=== PATIENT | male | born 1975 | race Caucasian/White ===

== ENCOUNTER 2016-05-13 15:43 | Emergency (ER) | payer BC ==
[2016-05-13] MEDS ORDERED: NORMAL SALINE 10 ML SYRINGE FLUSH IVP PRN (16:14)
[2016-05-13] MEDS ORDERED: ONDANSETRON 4 MG/2 ML VIAL IVP ONE (16:14)
[2016-05-13] MEDS ORDERED: Sodium Chloride 0.9% 1,000 ML PRIMARY IV ONE (16:14)
[2016-05-13] MEDS ORDERED: CloNIDine Tab 0.1 MG TABLET PO ONE (16:14)
--- NOTE | 2016-05-13 16:16 | PDOC ---
Alcohol/Drug Abuse HPI - General Chief Complaint: Drug / Alcohol Use &/or Abuse Stated Complaint: DRUG WITHDRAWLS/ NEEDS MEDS Date Seen by Provider: 05/13/16 Time Seen by Provider: 16:15 Source: POSITIVE: Patient, Other (Brother) Exam Limitations: POSITIVE: No limitations - History of Present Illness Initial Comments: Patient is a 41 y/o male who presents for evaluation of drug abuse. Patient has a history of heavy narcotic abuse. He has been injecting opana and dilaudid. Patient has been using opiods for sometime now. Recently moved to [place] from [place] to be with his brother. Patient has been investigating outpatient treatment but can not get any help unti sunday. He is worried that he will continue to abuse drugs due to his withdrawal symptoms. patient described diffuse pain, shakiness, nausea and vomiting. No diarrhea at this time. Mild, nondescript diffuse abdominal discomfort. no exacerbating or relieving factors. - Patient Home Medications Home Medications: Home Medications Esomeprazole Magnesium [Nexium] 40 mg PO DAILY cap 08/16/15 Clonidine HCl 0.1 mg PO BID #12 tab 05/13/16 Gabapentin 800 mg PO TID 05/13/16 HYDROcodone/APAP 10/325 Tab [Castaner 10/325 Tab] 1 tab PO Q4H PRN 05/13/16 HYDROmorphone Tab [Dilaudid Tab] 24 mg PO BID 05/13/16 Loperamide HCl [Anti-Diarrhea] 2 mg PO Q6H PRN #12 tablet 05/13/16 Oxymorphone HCl [Opana ER] 90 mg PO DAILY 05/13/16 Oxymorphone HCl [Opana] 15 mg PO DAILY 05/13/16 Promethazine HCl 25 mg PO Q6H PRN #12 tab 05/13/16 - Patient Allergies Allergies/Adverse Reactions: Allergies Allergy/AdvReac Type Severity Reaction Status Date / Time morphine AdvReac NAUSEA Verified 05/13/16 15:56 Past Medical History - heen HEENT History: Denies History Cardiovascular History: Denies History Respiratory History: Denies History Gastrointestinal History: GERD Genitourinary History: Denies History Endocrine History: Denies History Musculoskeletal History: Back Pain Neurological History: Denies History Blood Disorders: Denies History Substance Use Type: Opiate Pain Medication Previous Surgical History: Yes Type / Date of Surgery: appendectomy Significant Family History: No pertinent family hx ROS - Limitations ROS Limitations: No Limitations Constitution: REPORTS: Denies Symptoms. DENIES: Chills, Fever Cardiovascular: REPORTS: Denies Cardiac Symptoms Respiratory: REPORTS: Denies Resp Symptoms Neurological: REPORTS: Other (tremor) Gastrointestinal: REPORTS: Nausea, Vomitting. DENIES: Diarrhea Endocrine: REPORTS: Fatigue Musculoskeletal: REPORTS: Other (Chronic back and neck pain) Genitourinary: REPORTS: Denies Symptoms Eyes: REPORTS: Denies Symptoms ENT: REPORTS: Denies Symptoms Skin: REPORTS: Denies Skin Symptoms Psychiatric: POSITIVE: Anxiety Alcohol/Drug Abuse PE - General Appearance General Appearance: POSITIVE: No Acute Distress - HEENT HEENT: POSITIVE: Head Inspection Nml, Eyes Inspection Nml, EOMI, Dry Mucous Membranes - Pupil Size Pupil Size: 4 mm: Bilateral - Neurological/Psychological Neurological: POSITIVE: Alert, Oriented X 3, Other (aggitated.) Cranial Nerves: POSITIVE: Normal As Tested Cerebellar: POSITIVE: Normal As Tested Peripheral Exam: POSITIVE: No Motor Deficits - Neck Neck: POSITIVE: Supple, Non Tender. NEGATIVE: Cervical Lymphadenopathy - Respiratory Respiratory: POSITIVE: No Respiratory Distress, Breath Sounds Normal - CVS CVS: POSITIVE: Tachycardia. NEGATIVE: Murmur - Abdomen Abdomen: Soft: (All Quadrants), Normal Bowel Sounds: (All Quadrants), Denies Tenderness: (All Quadrants), No Splenomegaly: (All Quadrants), No Hepatomegaly: (All Quadrants), No Guarding: (All Quadrants), No Rebound: (All Quadrants) - Skin Skin: POSITIVE: Other (Track nadine on left upper extremity.) Alcohol/Drug Abuse Progress - Patient's Progress MDM / ED Course: Patient is a 41 y/o male who presents to the ER for treatment of drug abuse. Vitals are notable for tachycardia and examination demonstrates overall well appearing male in NAD. Patient is primarily interested in obtaining suboxone for treatment of his narcotic addiction. He was given NS bolus here, zofran, and clonidine. Patient was evaluation by [employer] sales representative from [employer] and he decided to not pursue treatment at [facility] at this time. Subsequently I will try to control symptoms with medication on an outpatient basis and have patient follow up with his outpatient provider as planned on Sunday. Patient Care Time - Estimated PCT Patient Care Time (In Minutes): 30 Vital Signs - Recent Vital Signs Vital Signs: Vital Signs (Last 8 hours) Temp Pulse Pulse Resp BP BP Pulse Ox 05/13/16 15:43 97.2 F 123 H 123 H 15 143/99 143/99 98 - VS Reviewed Vital Signs Reviewed: Yes Discharge Clinical Impression: Opioid abuse Discharge Disposition: Discharged to Home Condition: Fair Prescriptions / Orders: Loperamide HCl [Anti-Diarrhea] 2 mg PO Q6H PRN #12 tablet PRN Reason: Diarrhea Clonidine HCl 0.1 mg PO BID #12 tab Promethazine HCl 25 mg PO Q6H PRN #12 tab PRN Reason: Vomiting Patient Instructions Given at Discharge: Narcotic Abuse (ED), Opioid Withdrawal (ED) Additional Instructions: Please use medications as prescribed to help with symptoms. Keep outpatient appointment as scheduled. Follow up with [facility] if needed further treatment. Return to ER for any changes. Follow Up With: NONE,NONE [Primary Care Provider] -
[2016-05-13 16:32] VITALS: RESP 15; TEMP 97.2
== END 2016-05-13 17:24 | disposition home or self-care (01) ==
LOC: ER 15:43
DX: F11.23 Opioid dependence with withdrawal (principal); R11.2 Nausea with vomiting, unspecified; R19.7 Diarrhea, unspecified
CPT/HCPCS: 90791; 96361; 96374; 99282; 99283; J2405; J7030

== ENCOUNTER 2018-08-01 09:35 | Inpatient (IN) ==
[2018-08-01] MEDS ORDERED: Sodium Chloride 0.9% 1,000 ML PRIMARY IV ONE ×3 (09:59→12:56)
[2018-08-01] MEDS ORDERED: ONDANSETRON 4 MG/2 ML VIAL IVP ONE (09:59)
[2018-08-01] MEDS ORDERED: KETOROLAC 15 MG/1 ML VIAL IVP ONE (09:59)
--- NOTE | 2018-08-01 10:03 | PDOC ---
Neuro Symptoms / Deficit HPI - General Chief Complaint: Neurological Complaints Stated Complaint: legs weak Date Seen by Provider: 08/01/18 Time Seen by Provider: 09:40 Source: POSITIVE: Patient Exam Limitations: POSITIVE: No limitations Nurse's Notes Reviewed & Considered: Yes - History of Present Illness Initial Comments: This is a well-developed, well-nourished, 43-year-old male, complaining of lower extremity pain and weakness. Patient has had a one-year history of gradually increasing weakness in his lower extremities with pain that he has difficulty describing. Over the course of the last week his weakness has gotten significantly worse with him being unable to stand on his tiptoes. Patient was diagnosed approximately a year ago with diabetes but has taken no action and takes no medications. He does not have a doctor. Patient denies headache, no sore throat, no chest pain or shortness of breath, no nausea vomiting or diarrhea, no hematuria dysuria, no rashes. Body Location Affected: REPORTS: Lower Extremity (L), Lower Extremity (R) Timing: REPORTS: Gradual, Getting Worse Duration: Other (Approximately one year but significantly worse in the last week.) Severity: Severe Quality: REPORTS: "Pain" Context: DENIES: Insect Bite, Tick Bite, Falling Injury, Head Injury, Other Character of Deficit(s): REPORTS: Right, Left, RLE, LLE, New Weakness, General(diffuse), Decreased Ability to Walk, Weak Associated Symptoms: REPORTS: Back Pain Usual Ability to Walk/Stand: REPORTS: Walks w/o Assistance Usual Cognition: REPORTS: Alert & Oriented x3 Similar Symptoms Previously: No Recently seen/treated/hospitalized: No Any Prior Injuries Related to Current Complaint?: No - Patient Home Medications Home Medications: Home Medications Acetaminophen [Tylenol] 1,000 mg PO BID PRN 12/31/17 Naproxen 500 mg PO BID #20 tablet. 12/31/17 Pantoprazole Sodium [Protonix] 40 mg PO DAILY 08/01/18 - Patient Allergies Allergies/Adverse Reactions: Allergies Allergy/AdvReac Type Severity Reaction Status Date / Time Sulfa (Sulfonamide Allergy Rash Verified 08/01/18 09:36 Antibiotics) morphine AdvReac Mild NAUSEA Verified 12/31/17 11:47 Past Medical History - heen HEENT History: Denies History Cardiovascular History: Hypertension Respiratory History: Denies History Gastrointestinal History: GERD Genitourinary History: Denies History Endocrine History: Type 2 Diabetes (diet) Musculoskeletal History: Back Pain Prosthesis or Implant: No Additional Musculoskeletal History: CHRONIC NECK/BACK INJURY AND PAIN (HERNIATIONS) Neurological History: Denies History Additional Neurological History: NERVE PAIN Blood Disorders: Denies History Psychiatric History: Anxiety Disorders History of Sexually Transmitted Diseases: No Cancer History: Denies History In Past Year Been Physically Harmed or Verbally Threatened: No History of MDRO: No History of Other Communicable Diseases: No Tobacco Use: Never Smoker Alcohol Use: None In the Past 12 Months, Have Used or Abuse Any Substance: None Previous Surgical History: Yes Type / Date of Surgery: appendectomy Anesthesia Reactions: No Malignant Hyperthermia: No Significant Family History: No pertinent family hx ROS - Limitations ROS Limitations: No Limitations Constitution: REPORTS: Denies Symptoms Cardiovascular: REPORTS: Denies Cardiac Symptoms Respiratory: REPORTS: Denies Resp Symptoms Neurological: REPORTS: Numbness (Bilateral lower extremities), Difficulty Walking, Weakness (Bilateral lower extremities) Gastrointestinal: REPORTS: Denies GI Symptoms Endocrine: REPORTS: Fatigue, Elevated Glucose, Polydypsia, Polyuria Musculoskeletal: REPORTS: Back Pain Genitourinary: REPORTS: Denies Symptoms Eyes: REPORTS: Denies Symptoms ENT: REPORTS: Denies Symptoms Skin: REPORTS: Denies Skin Symptoms Lympathic: REPORTS: Denies Lympathic Symptoms Immunologic: POSITIVE: Denies Symptoms Psychiatric: POSITIVE: Denies Psych Symptoms Neuro Symptoms / Deficit Exam - General Appearance General Appearance: POSITIVE: No Acute Distress, Alert - HEENT HEENT: POSITIVE: Head Inspection Nml, Eyes Inspection Nml, Ears Inspection Nml, Nose Inspection Nml, Oral/Dental Inspect. Nml, Pharynx Inspect. Nml, PERRL, EOMI - Pupil Size Pupil Size: 3 mm: Bilateral - Neuro / Psych Higher Functions: POSITIVE: Oriented to Person, Oriented to Place, Oriented to Time, Normal Speech, Normal Cognition, Appropriate Mood, Appropriate Affect Cranial Nerves: POSITIVE: Normal As Tested Cerebellar: POSITIVE: Abnormal Gait Peripheral Exam: POSITIVE: Motor Normal, Weakness (Bilateral lower extremities), Altered Light-Touch (Bilateral lower extremities) Reflexes: Patellar (R): 0, Patellar (L): 0, Radial (R): 4+, Radial (L): 4+ - Neck Neck: POSITIVE: Supple, Non-Tender, No Carotid Bruit - Respiratory Respiratory: POSITIVE: No Respiratory Distress, Breath Sounds Normal - Cardiovascular Cardiovascular: POSITIVE: Regular Rate & Rhythm, Heart Sounds Normal Peripheral Pulses: Radial (R): 4+, Radial (L): 4+, Dorsalis-pedis (R): 4+, Dorsa lis-pedis (L): 4+ - Abdomen Abdomen: Soft: (All Quadrants), Normal Bowel Sounds: (All Quadrants), Denies Tenderness: (All Quadrants), No Splenomegaly: (All Quadrants), No Hepatomegaly: (All Quadrants), No Guarding: (All Quadrants), No Rebound: (All Quadrants), No Palpable Pulse: (All Quadrants), No Palpabale Mass: (All Quadrants), No Distention: (All Quadrants), No Rigidity: (All Quadrants) - Skin Skin: POSITIVE: Intact, Normal For Race, Warm, Dry, No Rash - Extremities Extremity: Non-Tender: (All Extremities), Normal ROM: (All Extremities), Normal Inspection: (All Extremities), Pelvis Stable: (All Extremities) Neuro Symptom/Deficit Progress - Results Reviewed by me Xrays/CTs/US Reviewed by me: Yes Discussed with Radiologist: Yes Lab Results Reviewed by Me: Yes CBC and BMP: 08/01/18 09:59 08/01/18 09:59 Lab Results:: Laboratory Results 08/01/18 08/01/18 08/01/18 09:59 09:59 09:59 WBC 7.42 RBC 5.26 Hgb 15.8 Hct 45.4 MCV 86.3 MCH 30.0 MCHC 34.8 RDW Std Deviation 39.6 RDW Coeff of Geo 12.6 Plt Count 213 MPV 11.3 Immature Gran % (Auto) 0.1 Neut % (Auto) 72.9 Lymph % (Auto) 20.1 Gregg % (Auto) 4.0 L Eos % (Auto) 2.4 Baso % (Auto) 0.5 Immature Gran # (Auto) 0.01 Neut # (Auto) 5.40 Lymph # (Auto) 1.49 Gregg # (Auto) 0.30 Eos # (Auto) 0.18 Baso # (Auto) 0.04 WBC Morphology Comment Normal morphology Plt Morphology Comment Normal morphology RBC Morph Comment Normal morphology ESR 15 VBG pH VBG pCO2 VBG HCO3 VBG Base Excess Sodium 129 L Potassium 4.9 Chloride 90 L Carbon Dioxide 23 Anion Gap 16 BUN 17 Creatinine 0.7 Estimated GFR > 60 BUN/Creatinine Ratio 24.28 H Glucose 927 H* Hemoglobin A1c Calculated Osmolality 315.0 H Lactic Acid Calcium 9.6 Magnesium 1.8 Total Bilirubin 0.6 AST 22 ALT 26 Alkaline Phosphatase 234 H C-Reactive Protein < 0.5 Total Protein 7.4 Albumin 4.5 Globulin 3.0 Albumin/Globulin Ratio 1.50 TSH Ur Collection Type Urine Color Urine Clarity Urine pH Ur Specific [place] Urine Protein Urine Glucose (UA) Urine Ketones Urine Occult Blood Urine Nitrate Urine Bilirubin Urine Acetone Urine Urobilinogen Ur Leukocyte Esterase Ur Culture Indicated? Acetone Level 08/01/18 08/01/18 08/01/18 09:59 10:38 10:59 WBC RBC Hgb Hct MCV MCH MCHC RDW Std Deviation RDW Coeff of Geo Plt Count MPV Immature Gran % (Auto) Neut % (Auto) Lymph % (Auto) Gregg % (Auto) Eos % (Auto) Baso % (Auto) Immature Gran # (Auto) Neut # (Auto) Lymph # (Auto) Gregg # (Auto) Eos # (Auto) Baso # (Auto) WBC Morphology Comment Plt Morphology Comment RBC Morph Comment ESR VBG pH VBG pCO2 VBG HCO3 VBG Base Excess Sodium Potassium Chloride Carbon Dioxide Anion Gap BUN Creatinine Estimated GFR BUN/Creatinine Ratio Glucose Hemoglobin A1c Calculated Osmolality Lactic Acid Calcium Magnesium Total Bilirubin AST ALT Alkaline Phosphatase C-Reactive Protein Total Protein Albumin Globulin Albumin/Globulin Ratio TSH 0.429 Ur Collection Type Clean catch urine Urine Color Yellow Urine Clarity Clear Urine pH 5.5 Ur Specific [place] 1.032 Urine Protein Negative Urine Glucose (UA) >=1000 Urine Ketones Negative Urine Occult Blood Negative Urine Nitrate Negative Urine Bilirubin Negative Urine Acetone Small Urine Urobilinogen 0.2 Ur Leukocyte Esterase Negative Ur Culture Indicated? Culture not set Acetone Level Negative 08/01/18 08/01/18 11:25 11:26 WBC RBC Hgb Hct MCV MCH MCHC RDW Std Deviation RDW Coeff of Geo Plt Count MPV Immature Gran % (Auto) Neut % (Auto) Lymph % (Auto) Gregg % (Auto) Eos % (Auto) Baso % (Auto) Immature Gran # (Auto) Neut # (Auto) Lymph # (Auto) Gregg # (Auto) Eos # (Auto) Baso # (Auto) WBC Morphology Comment Plt Morphology Comment RBC Morph Comment ESR VBG pH 7.35 VBG pCO2 44 L VBG HCO3 24 VBG Base Excess -2 Sodium Potassium Chloride Carbon Dioxide Anion Gap BUN Creatinine Estimated GFR BUN/Creatinine Ratio Glucose Hemoglobin A1c Calculated Osmolality Lactic Acid 2.4 H Calcium Magnesium Total Bilirubin AST ALT Alkaline Phosphatase C-Reactive Protein Total Protein Albumin Globulin Albumin/Globulin Ratio TSH Ur Collection Type Urine Color Urine Clarity Urine pH Ur Specific [place] Urine Protein Urine Glucose (UA) Urine Ketones Urine Occult Blood Urine Nitrate Urine Bilirubin Urine Acetone Urine Urobilinogen Ur Leukocyte Esterase Ur Culture Indicated? Acetone Level - Patient's Progress Pain Medication Addressed: POSITIVE: Yes Re-Examine Time:: 11:42 Status: POSITIVE: Improved MDM / ED Course: Patient was evaluated, IV started, blood drawn and sent to the lab for studies, MRI of his lumbar spine was obtained. Findings: MRI shows multilevel degenerative disc disease with no significant cord impingement or no food impingement. Urinalysis shows small amount of ketones. CBC shows white count hemoglobin and hematocrit platelets are normal. CMP shows abnormalities with a sodium of 129, chloride of 90, glucose is 927, alkaline phosphatase is 234, remainder the panel was normal. Magnesium is 1.8. TSH is 0.429. Hemoglobin A1c cannot be calculated and is been sent to reference lab. Acetone level is negative. Lactic acid, vitamin B-12, folate, and venous blood gases are pending. Assessment: Hyperosmolar, hyponatremia state in a type 2 diabetic. Plan: Patient receives 2 L of normal saline here in the emergency room as well as Toradol and is being admitted by the hospitalist, Dr. Randolph, for fluid and insulin. - Consult Consult (If Yes, Name of Consulting MD & Time Called): Yes (Dr. Randolph, 11:30 AM) Consulting MD will see pt:: POSITIVE: [facility] [place] Admit Counseled: POSITIVE: Patient, RE: Lab Results, RE: Radiology Results, RE: DX, RE: Need for F/U Patient Care Time - Estimated PCT Patient Care Time (In Minutes): 60 Vital Signs - Recent Vital Signs Vital Signs: Vital Signs (Last 8 hours) Temp Pulse Resp BP Pulse Ox 08/01/18 09:35 96.8 F 105 H 18 127/100 97 - VS Reviewed Vital Signs Reviewed: Yes Discharge Clinical Impression: Hyperosmolar non-ketotic state in patient with type 2 diabetes mellitus Discharge Disposition: Admit to Inpatient Condition: Stable Patient Problem(s) Reviewed: Yes Follow Up With: NONE,NONE [Primary Care Provider] - Date Decision to Admit to Inpatient: 08/01/18 Time Decision to Admit to Inpatient: 11:38
[2018-08-01 10:29] LABS: BASOPHILS # (AUTO) 0.04 10*3/UL; BASOPHILS % (AUTO) 0.5 % (0-1); EOSINOPHILS # (AUTO) 0.18 10*3/UL; EOSINOPHILS % (AUTO) 2.4 % (0-8); Hematocrit [HCT] 45.4 % (42.0-52.0); Hemoglobin [HGB] 15.8 g/dL (14.0-18.0); LYMPHOCYTES # (AUTO) 1.49 10*3/uL; MEAN CORPUSCULAR HGB CONC 34.8 g/dL (33-37); MEAN CORPUSCULAR VOLUME 86.3 FL (80-90); MEAN PLATELET VOLUME 11.3 FL (7.4-12.2); NEUTROPHILS % (AUTO) 72.9 % (50-80); RED BLOOD COUNT 5.26 10^6/uL (4.70-6.10)
[2018-08-01 10:38] LABS: BLOOD UREA NITROGEN 17 mg/dL (7-22); BUN/CREATININE RATIO 24.28 (6-20); SERUM ALBUMIN 4.5 g/dL (3.5-4.8)
[2018-08-01 10:46] LABS: PLATELET MORPHOLOGY COMMENT NORMAL MORPHOLOGY (NORM); RBC MORPHOLOGY COMMENT NORMAL MORPHOLOGY (NORM); WBC MORPHOLOGY COMMENT NORMAL MORPHOLOGY (NORM)
[2018-08-01 10:59] LABS: BILIRUBIN,URINE NEGATIVE (NEG); CLARITY,URINE CLEAR (CLEAR); COLOR,URINE YELLOW (Y); GLUCOSE, URINE (UA) >=1000 mg/dL (NEG); OCCULT BLOOD,URINE NEGATIVE (NEG); PH,URINE 5.5 (5.0-8.5); PROTEIN,URINE NEGATIVE (NEG); UROBILINOGEN,URINE 0.2 EU/dL (0.2)
[2018-08-01 11:23] LABS: Erythrocyte Sediment Rate 15 MM/HR (0-15)
--- NOTE | 2018-08-01 11:30 | DI ---
MRI Lumbar Spine WO Contrast 08/01/2018 9:59 AM History: [facility] [place] ^bilateral lower ext weakness with decrease DTR's Comparison: None. Procedure: Noncontrast routine MR imaging of the lumbar spine was performed. Findings: There is transitional lumbosacral anatomy with a right L5/S1 pseudoarthrosis. There is norm al anatomic alignment of the lumbar spine. The vertebral body heights are maintained and marrow signa l is preserved. There is normal termination of the conus at the T11/12 level. L1/2: Normal disc signal and morphology. There is no significant central canal stenosis or neurofora heather narrowing. L2/3: Mild disc desiccation and height loss. There is concentric disc bulge without significant centr al canal stenosis. There is no significant neuroforaminal narrowing. The disc bulge combined with lig amentum flavum hypertrophy and facet arthrosis results in right greater than left lateral recess narr owing and contact with the descending right L3 nerve root. L3/4: Moderate disc desiccation and height loss. Concentric disc bulge without significant central ca nal stenosis. There is no significant neural foraminal narrowing. The disc bulge combined with ligame ntum flavum hypertrophy and facet arthrosis results in mild to moderate bilateral lateral recess narr owing and contact with the descending L4 nerve roots bilaterally. L4/5: Moderate disc desiccation and height loss. There is no significant central canal stenosis or ne ural foraminal narrowing. L5/S1: Normal disc signal with moderate height loss. There is no significant central canal stenosis o r neural foraminal narrowing. Paravertebral soft tissues are within normal limits. Multiple cystic lesions are noted in the right k idney. Impression: Multilevel degenerative disc disease as above without MR evidence of nerve root compressi on or tethered cord.
[2018-08-01 11:37] LABS: VENOUS PH 7.35 (7.32-7.42)
[2018-08-01 11:42] LABS: URINE SAMPLE TYPE CLEAN CATCH URINE
[2018-08-01] MEDS ORDERED: NICOTINE 21 MG /DAY PATCH TRANSDERM SCH (12:00)
[2018-08-01] MEDS ORDERED: ACETAMINOPHEN 500 MG TABLET PO PRN (12:56)
[2018-08-01] MEDS ORDERED: LIDOCAINE W/ SODIUM BICARB 0.5 ML SYR SUBD PRN (12:56)
[2018-08-01] MEDS ORDERED: CALCIUM CARBONATE 500 MG (TUMS) CHEWABLE TABLET PO PRN (12:56)
[2018-08-01] MEDS ORDERED: Insulin Sliding Scale Protocol SUBCUT PRN (12:56)
[2018-08-01] MEDS ORDERED: ONDANSETRON 4 MG/2 ML VIAL IVP PRN (12:56)
[2018-08-01] MEDS ORDERED: Insulin Glargine SoloStar Inj 100 UNIT/ML INSULN.PEN SUBCUT ONE ×2 (12:56→21:50)
[2018-08-01] MEDS ORDERED: DEXTROSE 31 GM GEL PO PRN (12:56)
[2018-08-01] MEDS ORDERED: DOCUSATE 100 MG CAPSULE PO PRN (12:56)
[2018-08-01] MEDS ORDERED: ACETAMINOPHEN 325 MG TABLET PO PRN (12:56)
[2018-08-01] MEDS ORDERED: DEXTROSE 50%-WATER SYRINGE 50 ML SYRINGE IVP PRN (12:56)
[2018-08-01] MEDS ORDERED: Glucagon Inj Vial 1 MG/ML VIAL IM PRN (12:56)
[2018-08-01 15:48] LABS: BLOOD UREA NITROGEN 15 mg/dL (7-22)
[2018-08-01] MEDS: Insulin Lispro Flexpen 300 UNIT/3 ML INSULN.PEN SUBCUT SCH ×2 (17:40→20:50)
[2018-08-01] MEDS: Naproxen Tab 500 MG TAB PO SCH (20:50)
[2018-08-01] MEDS ORDERED: GABAPENTIN 100 MG CAPSULE PO ONE (21:51)
--- NOTE | 2018-08-01 21:56 | PDOC ---
HPI - History of Present Illness Date of Service: 08/01/18 Time of Service: 21:52 Chief Complaint: Numbness and tingling in lower extremities History of Present Illness: This very pleasant 43-year-old male that was seen and evaluated earlier today, who had been diagnosed with diabetes around 2 years ago in [place] and was placed on insulin and metformin but stopped all of his medications about 8 months ago when he lost insurance. He presented today with numbness and tingling in his lower extremities bilaterally. He complained that he had some decreased strength but has not had any difficulty walking. 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 He been on Neurontin in the past, but states that it really didn't help although that seemed to be for more neurologic pain. He states that he has had some problems with disks in his neck. He has never had surgery but apparently his had some rhizotomies and steroid injections in the past. He did have an MRI in the emergency room that showed degenerative changes but nothing that appeared compressive in the spinal cord. I'm told by the emergency room physician that his muscle strength was equal bilaterally, but he had diminished deep tendon reflexes. He had a very high sugar of over 900 on his basic metabolic panel although he was not in diabetic ketoacidosis. The patient also reported polyuria and polydipsia and states that he drinks excessive amounts of fluids but has a cotton dry mouth. He has lost about 45 pounds in the last 8 months. He notes to me that when he was on insulin in [place], he gained some weight. He has had some blurry vision at times and particularly when up close trying to read items. He uses readers to get over that. He stated to me that there was no significant exacerbating factors for his lower extremities, in terms of the numbness and tingling, but they've been interfering with sleep more frequently and been much more painful and so he came in for evaluation. The patient stated that in his youth, he was diagnosed with pancreatitis frequently. 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 He does not recall any ERCP to diagnosis however. He has had an EGD in the past that he recalls but he does not remember the results. His pancreatitis cases resolved. He does state he had a bout of pancreatitis about a month ago but treated it at home. He did not seek medical care at that time. Past Medical History Medical History: 1. Diabetes mellitus, not sure if this is type I or type II. 2. Tobacco abuse. 3. Chronic joint pains, with no prior history of osteoarthritis, rheumatoid arthritis, or ankylosing spondylitis. Surgical History: No prior surgeries Pertinent Family History: Significant for diabetes type II Past Social History: Smokes daily. No children. Not . Moved back to [place], [place], from [place] about 8 months ago. Does not have a primary physician. Works as a [employer]. Tobacco Use: Current Every Day Smoker In the Past 12 Months, Have Used or Abuse Any of the Following Substance: None Alcohol Use: None Medication / Allergies Home Medications: Home Medications Medication Instructions Recorded Confirmed Acetaminophen [Tylenol] 1,000 mg PO BID PRN 12/31/17 08/01/18 Naproxen 500 mg PO BID #20 tablet. 12/31/17 08/01/18 Pantoprazole Sodium [Protonix] 40 mg PO DAILY 08/01/18 08/01/18 Allergies/Adverse Reactions: Allergies Allergy/AdvReac Type Severity Reaction Status Date / Time Sulfa (Sulfonamide Allergy Rash Verified 08/01/18 21:15 Antibiotics) morphine AdvReac Mild NAUSEA Verified 08/01/18 21:15 Review of Systems - Review of Systems All Systems: Reviewed & No Additional Complaints Except as Stated (I did a 12 point review systems and it was negative other than that discussed below and in the history of present illness.) Exam - Vitals Vital Signs: Vital Signs Temperature 98.4 F Temperature Source Temporal Artery Scan Pulse Rate [Pulse Oximeter] 98 Pulse Rate 92 Respiratory Rate 16 Blood Pressure [Left Arm] 118/73 Blood Pressure 122/93 Pulse Ox 94 Oxygen Delivery Method Room Air Height 6 ft 4 in Weight 178 lb 6.4 oz - General General Appearance: No Acute Distress, Cooperative - Head Head Exam: Normal Inspection, Normocephalic, Atraumatic - Eye Eye Exam: POSITIVE: No Scleral Icterus - ENT ENT Exam: POSITIVE: Mucous Membranes Dry - Neck Neck Exam: Normal Inspection, No Tenderness, No Lymphadenopathy, No Thyromegaly, JVP is not Raised - Respiratory Respiratory Exam: POSITIVE: Clear to Auscultation - Bilaterally, Breathing Non Labored, Normal to Percussion and Palpation - Cardiovascular Cardiovascular Exam: POSITIVE: RRR, No Murmur, No Clicks, No Gallops, No Rubs, No JVD - GI/Abdominal GI/Abdominal Exam: POSITIVE: Normal Bowel Sounds, Non Tender, Non Distended, Soft - Rectal Rectal Exam: POSITIVE: Deferred - External Exam: POSITIVE: Deferred Exam: POSITIVE: Deferred - Extremities Extremities Exam: POSITIVE: No Clubbing Present, No Edema Present, No Cyanosis Present - Back Back Exam: POSITIVE: No CVA Tenderness - Neurological Neurological Exam: POSITIVE: Alert, Oriented x 3, No Facial Droop, Speech Intact / Clear, Moves All Extremities Equally Additional Neurological Exam Details: Patellar reflexes are dull - Psychiatric Psychiatric Exam: POSITIVE: Normal Affect, Normal Mood - Integumentary Integumentary Exam: POSITIVE: Dry, Intact Results - Labs CBC and BMP: 08/01/18 09:59 08/01/18 17:00 Additional Lab Results: 08/01/18 08/01/18 08/01/18 09:59 09:59 09:59 WBC 7.42 Hgb 15.8 Hct 45.4 Plt Count 213 ESR 15 VBG pH VBG pCO2 VBG HCO3 VBG Base Excess Sodium 129 L Potassium 4.9 Chloride 90 L Carbon Dioxide 23 Anion Gap 16 BUN 17 Creatinine 0.7 Estimated GFR > 60 BUN/Creatinine Ratio 24.28 H Glucose 927 H* Calculated Osmolality 315.0 H Lactic Acid Calcium 9.6 Magnesium 1.8 Total Bilirubin 0.6 AST 22 ALT 26 Alkaline Phosphatase 234 H C-Reactive Protein < 0.5 Total Protein 7.4 Albumin 4.5 Globulin 3.0 Albumin/Globulin Ratio 1.50 TSH 0.429 Urine Glucose (UA) Acetone Level 08/01/18 08/01/18 08/01/18 10:38 10:59 11:25 WBC Hgb Hct Plt Count ESR VBG pH VBG pCO2 VBG HCO3 VBG Base Excess Sodium Potassium Chloride Carbon Dioxide Anion Gap BUN Creatinine Estimated GFR BUN/Creatinine Ratio Glucose Calculated Osmolality Lactic Acid 2.4 H Calcium Magnesium Total Bilirubin AST ALT Alkaline Phosphatase C-Reactive Protein Total Protein Albumin Globulin Albumin/Globulin Ratio TSH Urine Glucose (UA) >=1000 Acetone Level Negative 08/01/18 11:26 WBC Hgb Hct Plt Count ESR VBG pH 7.35 VBG pCO2 44 L VBG HCO3 24 VBG Base Excess -2 Sodium Potassium Chloride Carbon Dioxide Anion Gap BUN Creatinine Estimated GFR BUN/Creatinine Ratio Glucose Calculated Osmolality Lactic Acid Calcium Magnesium Total Bilirubin AST ALT Alkaline Phosphatase C-Reactive Protein Total Protein Albumin Globulin Albumin/Globulin Ratio TSH Urine Glucose (UA) Acetone Level Assessment and Plan - Patient Problems (1) Poorly controlled diabetes mellitus Current Visit: Yes Status: Acute Code(s): E11.65 - Type 2 diabetes mellitus with hyperglycemia (2) Dehydration Current Visit: Yes Status: Acute Code(s): E86.0 - Dehydration (3) Hyperosmolar non-ketotic state in patient with type 2 diabetes mellitus Current Visit: Yes Status: Acute Code(s): E11.00 - Type 2 diabetes mellitus with hyperosmolarity without nonketotic hyperglycemic-hyperosmolar coma ([facility]) (4) Tobacco abuse Current Visit: Yes Status: Acute Code(s): Z72.0 - Tobacco use (5) Peripheral neuropathy Current Visit: Yes Status: Acute Code(s): G62.9 - Polyneuropathy, unspecified Qualifiers: Peripheral neuropathy type: polyneuropathy associated with underlying disease Qualified Code(s): G63 - Polyneuropathy in diseases classified elsewhere (6) Chronic pancreatitis Current Visit: Yes Status: Chronic Code(s): K86.1 - Other chronic pancreatitis Qualifiers: Pancreatitis type: other Qualified Code(s): K86.1 - Other chronic pa ncreatitis (7) Lumbar degenerative disc disease Current Visit: Yes Status: Acute Code(s): M51.36 - Other intervertebral disc degeneration, lumbar region - Assessment / Plan Additional Assessment/Plan Details: Given the profound nature of his hyperglycemia, what appears to be non-ketotic hyperosmolar state, we will admit the patient, IV fluids, electrolyte re placement as necessary, correction of sugars with insulin therapy. I'm going to go ahead and get a C-peptide level and insulin antibodies. Hopefully this will help us determine if this is type I or type II diabetes. He has clinical features of both. Smoking cessation education is ordered, nicotine replacement patch. Given his arthritic findings and his history of arthritis, check an arthritis panel, get HLA-B27 level for ankylosing spondylosis, and continue anti- inflammatory for pain when necessary. Labs in a.m. Dietitian and diabetic education Post hospital stay, we'll try to get the patient a primary physician. Given the lack of prior diabetes education, severity of nonketotic hyperosmolar states, and the potential for rapid deterioration neurologically based on an HH NK state, the patient needs to be monitored as an inpatient.
[2018-08-01 22:37] LABS: BLOOD UREA NITROGEN 13 mg/dL (7-22)
[2018-08-01] MEDS ORDERED: POTASSIUM CHLORIDE 20 MEQ TAB PO ONE (23:21)
[2018-08-02 05:18] LABS: BASOPHILS # (AUTO) 0.06 10*3/UL; BASOPHILS % (AUTO) 0.6 % (0-1); EOSINOPHILS # (AUTO) 0.36 10*3/UL; EOSINOPHILS % (AUTO) 3.8 % (0-8); Hematocrit [HCT] 39.6 % (42.0-52.0); Hemoglobin [HGB] 13.8 g/dL (14.0-18.0); MEAN CORPUSCULAR HEMOGLOBIN 29.9 PG (27-31); MEAN CORPUSCULAR HGB CONC 34.8 g/dL (33-37); MEAN CORPUSCULAR VOLUME 85.9 FL (80-90); MEAN PLATELET VOLUME 11.2 FL (7.4-12.2); MONOCYTES # (AUTO) 0.45 10*3/UL (0.3-0.8); MONOCYTES % (AUTO) 4.8 % (5-15); NEUTROPHILS # (AUTO) 5.17 10*3/UL; NEUTROPHILS % (AUTO) 54.7 % (50-80); RED BLOOD COUNT 4.61 10^6/uL (4.70-6.10)
[2018-08-02 05:31] LABS: PLATELET MORPHOLOGY COMMENT NORMAL MORPHOLOGY (NORM); RBC MORPHOLOGY COMMENT NORMAL MORPHOLOGY (NORM); WBC MORPHOLOGY COMMENT NORMAL MORPHOLOGY (NORM)
[2018-08-02 05:36] LABS: BLOOD UREA NITROGEN 12 mg/dL (7-22); LIPASE 43 IU/L (23-300); SERUM ALBUMIN 3.7 g/dL (3.5-4.8)
[2018-08-02] MEDS: Insulin Lispro Flexpen 300 UNIT/3 ML INSULN.PEN SUBCUT SCH ×4 (07:23→21:47)
[2018-08-02] MEDS: PANTOPRAZOLE 40 MG TABLET PO SCH (08:37)
[2018-08-02] MEDS: Naproxen Tab 500 MG TAB PO SCH ×2 (08:38→21:46)
[2018-08-02] MEDS: GABAPENTIN 100 MG CAPSULE PO SCH ×3 (08:39→21:46)
[2018-08-02] MEDS: NICOTINE 21 MG /DAY PATCH TRANSDERM SCH (08:40)
[2018-08-02] MEDS: Patch Removal NICOTINE PATCH TRANSDERM SCH (08:41)
[2018-08-02] MEDS ORDERED: Insulin Glargine SoloStar Inj 100 UNIT/ML INSULN.PEN SUBCUT ONE ×2 (08:57→16:12)
[2018-08-02] MEDS ORDERED: POTASSIUM CHLORIDE 20 MEQ TAB PO ONE (09:44)
--- NOTE | 2018-08-02 11:18 | PDOC(PROG) ---
Date of Service: 08/02/18 Time of Service: 13:30 Interval History: patient seen, evaluated earlier no chest pain, no SOB, no nausea or vomiting. feels a little tired. Objective : Data - Labs CBC and BMP: 08/02/18 04:26 08/02/18 04:26 Additional Lab Results: Selected Entries 08/01/18 23:25 08/02/18 01:25 08/02/18 03:00 Finger Stick Blood Glucose 285 H 266 H 242 H 08/02/18 05:00 08/02/18 07:00 08/02/18 09:00 Finger Stick Blood Glucose 249 H 246 H 167 H 08/02/18 11:09 Finger Stick Blood Glucose 332 H Objective : Exam - General General Appearance: No Acute Distress, Cooperative Additional General Exam Details: Vital Signs - Last Taken Temperature 98.1 F 08/02/18 11:10 Pulse Rate 82 08/02/18 11:10 Respiratory Rate 18 08/02/18 11:10 Blood Pressure 106/70 08/02/18 11:10 Pulse Ox 96 08/02/18 11:10 - Head Head Exam: Normal Inspection, Normocephalic, Atraumatic - Eye Eye Exam: No Scleral Icterus - ENT ENT Exam: Mucous Membranes Moist - Neck Neck Exam: JVP is not Raised - Respiratory Respiratory Exam: Clear to Auscultation - Bilaterally, Breathing Non Labored - Cardiovascular Cardiovascular Exam: RRR, No Murmur, No Clicks, No Gallops, No Rubs, No JVD - GI/Abdominal GI/Abdominal Exam: Normal Bowel Sounds, Non Tender, Non Distended, Soft - Extremities Extremities Exam: No Clubbing Present, No Edema Present, No Cyanosis Present - Neurological Neurological Exam: Alert, Oriented x 3, No Facial Droop, Speech Intact / Clear, Moves All Extremities Equally Assessment and Plan - Patient Problems (1) Poorly controlled diabetes mellitus Current Visit: Yes Status: Acute Code(s): E11.65 - Type 2 diabetes mellitus with hyperglycemia (2) Dehydration Current Visit: Yes Status: Acute Code(s): E86.0 - Dehydration (3) Hyperosmolar non-ketotic state in patient with type 2 diabetes mellitus Current Visit: Yes Status: Acute Code(s): E11.00 - Type 2 diabetes mellitus with hyperosmolarity without nonketotic hyperglycemic-hyperosmolar coma ([facility]) (4) Tobacco abuse Current Visit: Yes Status: Acute Code(s): Z72.0 - Tobacco use (5) Peripheral neuropathy Current Visit: Yes Status: Acute Code(s): G62.9 - Polyneuropathy, unspecified Qualifiers: Peripheral neuropathy type: polyneuropathy associated with underlying disease Qualified Code(s): G63 - Polyneuropathy in diseases classified elsewhere (6) Chronic pancreatitis Current Visit: Yes Status: Chronic Code(s): K86.1 - Other chronic pancreatitis Qualifiers: Pancreatitis type: other Qualified Code(s): K86.1 - Other chronic pancreatitis (7) Lumbar degenerative disc disease Current Visit: Yes Status: Acute Code(s): M51.36 - Other intervertebral disc degeneration, lumbar region - Assessment / Plan Additional Assessment/Plan Details: continue lantus, 45 units daily. blood sugar monitoring and SSI (novolog) I learned that paraeducator and pharmacists is out on vacation currently several send out labs pending might benefit from abdominal MRI to evaluate the chronic pancreatitis replace potassium labs in AM
[2018-08-02 14:51] LABS: HEMOGLOBIN A1C 17.4 % (4.2-6.0)
[2018-08-03 05:30] LABS: BLOOD UREA NITROGEN 12 mg/dL (7-22)
[2018-08-03] MEDS: Insulin Lispro Flexpen 300 UNIT/3 ML INSULN.PEN SUBCUT SCH ×2 (06:55→11:22)
[2018-08-03] MEDS ORDERED: Insulin Glargine SoloStar Inj 100 UNIT/ML INSULN.PEN SUBCUT SCH ×2 (07:00)
[2018-08-03] MEDS: GABAPENTIN 100 MG CAPSULE PO SCH (09:09)
[2018-08-03] MEDS: PANTOPRAZOLE 40 MG TABLET PO SCH (09:10)
[2018-08-03] MEDS: Naproxen Tab 500 MG TAB PO SCH (09:10)
[2018-08-03] MEDS: NICOTINE 21 MG /DAY PATCH TRANSDERM SCH (09:11)
[2018-08-03] MEDS: Patch Removal NICOTINE PATCH TRANSDERM SCH (09:19)
--- NOTE | 2018-08-03 09:21 | DCSUMMARY ---
Hospitalization Summary Admit Date: 08/01/2018 Discharge Date: 08/03/18 Primary Diagnosis:: HHNK, poorly controlled diabetes mellitus type II Hospital Course: This very pleasant 43-year-old male that had known diabetes mellitus, but not sure if it was type I or type II, we stopped his insulin around 7 or 8 months ago, and he came in with worsening leg pain with numbness and tingling. He's developed worsening peripheral neuropathy. He was found to have a blood sugar of over 900. His laboratory workup was consistent with hyperosmolar nonketotic syndrome. He was admitted, placed on IV fluids, and insulin therapy. His blood sugars did come down although they are still in the 200s fairly consistently. I think this will take some time to drive the blood sugars down even further. He is being taught insulin injections at bedside again but does have some exper ience doing that. We were able to get him set with the dietitian/staff development educator on Sunday as she is out of town currently on vacation so could not do that in the hospital. We did get a glucose monitor and taught him how to use that as well. I've written prescriptions for lancets and test strips. For now we will keep him on Lantus, 60 units daily. We will also have him on lispro or Humalog for his fast acting insulin 10 units with his meals daily. I do not want to do sliding dose or correction dose insulin at this time as we are getting him use to this regimen. His neuropathy and tingling were a little better, but not improved significantly. He was not clear whether Neurontin was helping so I told him to take some doses and skip other doses initially to try and determine whether it's helping him with his neuropathy or not. Had an MRI scan that showed some degenerative lumbar changes, but no compressions and needed to be addressed surgically. His symptoms were most consistent with peripheral neuropathy. I do have a vitamin B12 and folic acid level pending. Sometimes vitamin B12 levels and below and cause neuropathy as well so that may need to be replaced if it's low and that'll need to be reviewed in the clinic as well. Today, no chest pain, shortness breath, nausea or vomiting. The patient would like to go home. Assessment and Plan: 1. As per discharge assessments noted 2. Disposition: Patient is discharged home. 3. Condition on discharge, stable and improved. 4. Diet: regular diet 5. Activities: resume normal activities 6. Follow-Up: 1. Dr. Hernadez in August 2. Dietitian on 08/05/2018 7. Medications at the Time of Discharge: Home Medications Medication Instructions Recorded Confirmed Acetaminophen [Tylenol] 1,000 mg PO BID PRN 12/31/17 08/01/18 Naproxen 500 mg PO BID #20 tablet. 12/31/17 08/01/18 Pantoprazole Sodium [Protonix] 40 mg PO DAILY 08/01/18 08/01/18 Gabapentin [Neurontin] 100 mg PO TID #90 cap 08/03/18 Insulin Glargine SoloStar Inj 60 unit SUBCUT C BK #2 insuln.pen 08/03/18 [Lantus SoloStar Inj] Insulin Lispro Flexpen Inj 10 unit SUBCUT AC #2 insuln.pen 08/03/18 [HumaLOG Flexpen Inj] Nicotine 21mg Patch [Nicoderm CQ 1 patch TRANSDERM DAILY #30 patch 08/03/18 21mg Patch] We arranged for 2 additional pens of Lantus and Humalog so that we can get the patient to his primary provider to determine whether this regimen will fit with the patient's overall condition and finances and all those things. 8. Time, care, counseling and coordination of care for this discharge is greater than 30 minutes. Exam - Vitals Vital Signs: Vital Signs Temperature 97.2 F Temperature Source Temporal Artery Scan Pulse Rate [Pulse Oximeter] 94 Pulse Rate 92 Respiratory Rate 18 Blood Pressure [Right Arm] 117/80 Blood Pressure [Left Arm] 112/81 Blood Pressure 122/93 Pulse Ox 96 Oxygen Flow Rate 1 Oxygen Delivery Method Room Air Height 6 ft 4 in Weight 181 lb 6.4 oz - General General Appearance: No Acute Distress, Cooperative - Eye Eye Exam: POSITIVE: No Scleral Icterus - ENT ENT Exam: POSITIVE: Mucous Membranes Moist - Neck Neck Exam: JVP is not Raised - Respiratory Respiratory Exam: POSITIVE: Clear to Auscultation - Bilaterally, Breathing Non L abored - Cardiovascular Cardiovascular Exam: POSITIVE: RRR, No Murmur, No Clicks, No Gallops, No Rubs, No JVD - GI/Abdominal GI/Abdominal Exam: POSITIVE: Normal Bowel Sounds, Non Tender, Non Distended, Soft - Extremities Extremities Exam: POSITIVE: No Clubbing Present, No Edema Present, No Cyanosis Present - Neurological Neurological Exam: POSITIVE: Alert, Oriented x 3, No Facial Droop, Speech Intact / Clear, Moves All Extremities Equally Data Peritnent Studies: 08/01/18 08/01/18 08/01/18 09:59 09:59 09:59 WBC Hgb Hct Plt Count ESR VBG pH VBG pCO2 VBG HCO3 VBG Base Excess Sodium Potassium Chloride Carbon Dioxide Anion Gap BUN Creatinine Estimated GFR BUN/Creatinine Ratio Glucose 927 H* Hemoglobin A1c 17.4 H Calculated Osmolality Calcium Phosphorus Magnesium 1.8 Total Bilirubin 0.6 AST 22 ALT 26 Alkaline Phosphatase 234 H Total Protein Albumin Globulin Albumin/Globulin Ratio Lipase Vitamin B12 Serum Folate TSH 0.429 08/01/18 08/01/18 08/01/18 10:40 11:26 15:10 WBC Hgb Hct Plt Count ESR VBG pH 7.35 VBG pCO2 44 L VBG HCO3 24 VBG Base Excess -2 Sodium Potassium Chloride Carbon Dioxide Anion Gap BUN Creatinine Estimated GFR BUN/Creatinine Ratio Glucose Hemoglobin A1c Calculated Osmolality Calcium Phosphorus 3.9 Magnesium Total Bilirubin AST ALT Alkaline Phosphatase Total Protein Albumin Globulin Albumin/Globulin Ratio Lipase Vitamin B12 710 Serum Folate 13.9 TSH 08/01/18 08/02/18 08/02/18 22:30 04:26 04:26 WBC 9.46 Hgb 13.8 L Hct 39.6 L Plt Count 220 ESR 19 H VBG pH VBG pCO2 VBG HCO3 VBG Base Excess Sodium 139 Potassium 3.7 L Chloride 111 Carbon Dioxide 20 L Anion Gap 8 BUN 12 Creatinine 0.5 L Estimated GFR > 60 BUN/Creatinine Ratio 24.00 H Glucose 248 H Hemoglobin A1c Calculated Osmolality 295.0 H Calcium 8.8 Phosphorus Magnesium Total Bilirubin 0.3 AST 20 L ALT 22 Alkaline Phosphatase 129 H Total Protein 6.3 Albumin 3.7 Globulin 2.6 Albumin/Globulin Ratio 1.40 Lipase 43 Vitamin B12 Serum Folate TSH Procedures: [address] [facility] [facility] [place] [id number] PH: DD: [phone] FAX: [phone] ~DIAGNOSTIC IMAGING REPORT~ Patient: OTONIEL WALTERS : 1975 Sex: M Age: 43 Exam Name: MRI Lumbar Spine WO Contrast Exam Date: 08/01/18 Report # : [id number] CPT Code: 86531 EMR/MR #: [id number] Ordering: Lorne Sultana Admiting: Primary: NONE,NONE Attending: Signed MRI Lumbar Spine WO Contrast 08/01/2018 9:59 AM History: [facility] [place] [facility] ^bilateral lower ext weakness with decrease DTR's Comparison: None. Procedure: Noncontrast routine MR imaging of the lumbar spine was performed. Findings: There is transitional lumbosacral anatomy with a right L5/S1 pseudoarthrosis. There is normal anatomic alignment of the lumbar spine. The vertebral body heights are maintained and marrow signal is preserved. There is normal termination of the conus at the T11/12 level. L1/2: Normal disc signal and morphology. There is no significant central canal stenosis or neuroforaminal narrowing. L2/3: Mild disc desiccation and height loss. There is concentric disc bulge without significant central canal stenosis. There is no significant neuroforaminal narrowing. The disc bulge combined with ligamentum flavum hypertrophy and facet arthrosis results in right greater than left lateral recess narrowing and contact with the descending right L3 nerve root. L3/4: Moderate disc desiccation and height loss. Concentric disc bulge without significant central canal stenosis. There is no significant neural foraminal narrowing. The disc bulge combined with ligamentum flavum hypertrophy and facet arthrosis results in mild to moderate bilateral lateral recess narrowing and contact with the descending L4 nerve roots bilaterally. L4/5: Moderate disc desiccation and height loss. There is no significant central canal stenosis or neural foraminal narrowing. L5/S1: Normal disc signal with moderate height loss. There is no significant central canal stenosis or neural foraminal narrowing. Paravertebral soft tissues are within normal limits. Multiple cystic lesions are noted in the right kidney. Impression: Multilevel degenerative disc disease as above without MR evidence of nerve root compression or tethered cord. Dictated By: 08/01/18 1119 RYAN SAINZ MD. Signed By: 08/01/18 1130 RYAN SAINZ MD. Patient Problems - Patient Problem List (1) Poorly controlled diabetes mellitus Current Visit: Yes Status: Acute Code(s): E11.65 - Type 2 diabetes mellitus with hyperglycemia Category: Medical (2) Dehydration Current Visit: Yes Status: Acute Code(s): E86.0 - Dehydration Category: Medical (3) Hyperosmolar non-ketotic state in patient with type 2 diabetes mellitus Current Visit: Yes Status: Acute Code(s): E11.00 - Type 2 diabetes mellitus with hyperosmolarity without nonketotic hyperglycemic-hyperosmolar coma ([facility]) Category: Medical (4) Tobacco abuse Current Visit: Yes Status: Acute Code(s): Z72.0 - Tobacco use Category: Medical (5) Peripheral neuropathy Current Visit: Yes Status: Acute Code(s): G62.9 - Polyneuropathy, unspecified Qualifiers: Peripheral neuropathy type: polyneuropathy associated with underlying disease Qualified Code(s): G63 - Polyneuropathy in diseases classified elsewhere Category: Medical (6) Chronic pancreatitis Current Visit: Yes Status: Chronic Code(s): K86.1 - Other chronic pancreatitis Qualifiers: Pancreatitis type: other Qualified Code(s): K86.1 - Other chronic pancreatitis Category: Medical (7) Lumbar degenerative disc disease Current Visit: Yes Status: Acute Code(s): M51.36 - Other intervertebral disc degeneration, lumbar region Category: Medical
[2018-08-03 11:45] VITALS: BP 120/96; RESP 20; TEMP 97.8; O2SAT 98
== END 2018-08-03 13:07 | disposition home or self-care (01) | DRG 638 ==
LOC: ER 09:35 → MED/SURG 12:33
PROVIDERS: ADMIT Family Medicine; ATTEND Family Medicine